=== PATIENT | female | born 1980 | race Caucasian/White ===

== ENCOUNTER 2018-10-14 22:45 | Emergency (ER) | payer BC ==
[~2018-10-14] VITALS: Ht 167.6 cm; Wt 129.3 kg
--- NOTE | 2018-10-14 23:15 | NUR ---
Note luis felipe in [facility] - 10/14/18 at 2342 by SURY CALLED PATIENT IN [facility], NO ANSWER.
[2018-10-14 23:18] VITALS: BP 150/95
--- NOTE | 2018-10-14 23:30 | NUR ---
Virginie briscoe in [facility] - 10/14/18 at 2342 by SURY PATIENT NOT IN THE [facility].
--- NOTE | 2018-10-15 00:31 | NUR ---
Patient discharged to home in stable condition. Written and verbal after care instructions given. Patient verbalizes understanding of instruction.
== END 2018-10-15 00:32 | disposition home or self-care (01) ==
LOC: ER 22:52
DX: S60.443A External constriction of left middle finger, initial encounter (principal); W49.04XA Ring or other jewelry causing external constriction, initial encounter; Y93.89 Activity, other specified; Y92.89 Other specified places as the place of occurrence of the external cause; Y99.8 Other external cause status